=== PATIENT | male | born 1970 | race Caucasian/White ===

== ENCOUNTER 2021-10-10 22:15 | Emergency (ER) | payer BC, OTHER ==
--- OUTSIDE RECORDS SUMMARY | 2021-10-10 22:18 | XMS REPORT | Continuity of Care Document ---
:1970 Author Organization [facility] t Address [address] [place] [address] Care Team Providers Name Role Phone MENDOZA LOZOYA Primary Care Physician Unavailable Dimitri Attending Clinician Unavailable EDIONGILSON Attending Clinician Unavailable EDARYA Admitting Clinician Unavailable Payers Payer Name Policy Type Policy Number Effective Date Expiration Date Cherie ROBLES O [id number] 2017 00:00:00 2021 00:00 :00 Problems This patient has no known problems. Allergies, Adverse Reactions, Alerts Allergy Allergy Status Severity Reaction(s) Onset Inactive Treating Comm ents Source Name Type Date Date Clinician NO KNOWN Drug Active [facility] Medications Ordered Filled Start Stop Current Ordering Indication Dosage Frequency Signature Comments Components Source Medication Medication Date Date Medication? Clinician (SIG) Name Name Lisinopril Lisinopril Yes Vani [address] [facility] [facility] Tylenol Tylenol Yes Vani not [facility] Arthritis Arthritis [place] [facility] Metformin Metformin Yes Vani [address] [facility] HCl HCl [place] [facility] Atorvastati Atorvastati Yes Vani [address] [facility] n Calcium n Calcium [place] [facility] Immunizations Ordered Filled Immunization Date Status Comments Sourc e Immunization Name Name Flucsarax - single Flucxochitlvax - single 2019-07-[address] [facility] - dose syringe dose syringe 00:00:00 [facility] Procedures This patient has no known procedures. Encounters Start End Encounter Admission Attending Care Care Encounter Source Date/Time Date/Time Type Type Clinicians Facility Department ID 2021-08-22 Out[facility] [id number] [facility] 2021-08-22 Outpatient Dimit[facility]I [facility] [id number] [facility] 12[facility]45[facility]46 [id number] 2021-08-22 [facility] [id number] [facility] 11[facility]24[facility] [id number] [facility] 2021-08-10 2021-08-10 [facility] [id number] [facility] 2021-06-10 2021-06-10 [facility] [id number] [facility] 2021-05-17 2021-05-17 [facility] [id number] [facility] 2020-10-23 2020-10-23 [facility] [id number] [facility] 2020-10-12 2020-10-12 [facility] [id number] [facility] 2020-07-24 2020-07-24 [facility] [id number] [facility] 2020-03-31 2020-03-31 [facility] [id number] [facility] 09:00[facility]00 09:00:00 [facility] 2019-12-30 2019-12-30 [facility] [id number] [facility] 10[facility]20:00 10:20:00 [facility] 2019-10-01 2019-10-01 [facility] [id number] 09:40:00 09:40:00 [facility] 2019-07-12 2019-07-13 Outpatient Pan BAUER [facility] [id number] [facility] 17[facility]19:26 18:02:00 [facility] 2019-07-08 2019-07-08 [facility] [id number] [address] 17:57:00 17:57:00 [facility] 2019-07-08 2019-07-08 [facility] [id number] 15:00:00 15:00:00 [facility] 2019-07-02 2019-07-02 [facility] [id number] 08:00:00 08:00:00 [facility] 2019-03-26 2019-03-26 [facility] [id number] 08:20:00 08:20:00 [facility] 2019-02-10 2019-02-10 [facility] [id number] 15:20:00 15:20:00 [facility] Results This patient has no known results.
[2021-10-10 23:27] LABS: Absolute Lymphocytes (CBC) 3.5 K/uL (0.7-4.9); MPV 8.3 fL (7.6-11.3)
[2021-10-10 23:48] LABS: Albumin 3.8 g/dL (3.4-5.0); Bilirubin Direct 0.1 mg/dL (0-0.2); Bilirubin Total 0.4 mg/dL (0.2-1.0); Potassium 3.9 mmol/L (3.5-5.1); Protein, Total 7.5 g/dL (6.4-8.2); Troponin High Sensitivity 16.4 pg/mL (<58.9)
[2021-10-11] MEDS ORDERED: METOPROLOL TARTRATE 5 MG/5 ML INJ IV ONE (00:21)
--- NOTE | 2021-10-11 08:03 | ER ---
Nurse's Notes [facility] Name: Brandon Nelson Age: 51 yrs Sex: Male : 1970 Arrival Date: 10/10/2021 Time: 22:19 Bed 15 Private MD: Diagnosis: sinus tachycardia;Palpitations Presentation: 10/10 22:26 Chief complaint: Patient states: I was at work and at around 9 pm my Heart rate jump to ke1 210 on apple watch, started feeling clammy , hot with headache. Last time had these symptoms was in 2019. Coronavirus screen: Vaccine status: Patient reports receiving the 2nd dose of the covid vaccine. Ebola Screen: No symptoms or risks identified at this time. Initial Sepsis Screen: Does the patient meet any 2 criteria? No. Patient's initial sepsis screen is negative. Does the patient have a suspected source of infection? No. Patient's initial sepsis screen is negative. Risk Assessment: Do you want to hurt yourself or someone else? Patient reports no desire to harm self or others. Onset of symptoms was October 10, 2021 at 21:00. 22:26 Method Of Arrival: Ambulatory counts include 234 beds at the [facility] 22:26 Acuity: BIN 2 as6 Triage Assessment: 22:34 General: Appears in no apparent distress. Behavior is anxious. Pain: Denies pain. Pain: counts include 234 beds at the [facility] Pain currently is 2 out of 10 on a pain scale. Cardiovascular: Reports headache. Historical: - Allergies: 22:31 No Known Allergies; ke1 - PMHx: 22:31 Diabetes mellitus; Hypertensive disorder; high cholesterol; ke1 - PSHx: 22:31 double hernia when baby; neck surgery; ke1 - Immunization history:: Flu vaccine is not up to date. It has been more than one year since last vaccine. - Social history:: Smoking status: Patient reports the use of cigarette tobacco products, smokes one-half pack cigarettes per day. Screenin/17 00:10 Abuse screen: Denies threats or abuse. Nutritional screening: No deficits noted. ke1 Tuberculosis screening: No symptoms or risk factors identified. Fall Risk No fall in past 12 months (0 pts). No secondary diagnosis (0 pts). No IV (0 pts). Ambulatory Aid- None/Bed Rest/Nurse Assist (0 pts). Gait- Normal/Bed Rest/Wheelchair (0 pts) Mental Status- Oriented to own ability (0 pts). Total Herrera Fall Scale indicates No Risk (0-24 pts). Assessment: 10/10 23:00 Pain: Pain began 4 hours ago. jg9 23:00 Pain: Pain does not radiate. jg9 23:23 Reassessment: Patient states feeling better. as6 10/11 01:09 Pain: Denies pain. ke1 02:00 Reassessment: Patient is alert, oriented x 3, equal unlabored respirations, skin ke1 warm/dry/pink. Patient states symptoms have improved. 03:21 Reassessment: Patient denies pain at this time. Patient states feeling better. Patient ke1 states symptoms have improved. 04:31 Reassessment: Patient is alert, oriented x 3, equal unlabored respirations, skin as6 warm/dry/pink. Patient states symptoms have improved. Vital Signs: 10/10 22:26 BP 130 / 96; Pulse 123; Resp 18; Temp 98.4; Weight 120.2 kg; Height 6 ft. 2 in. (187.96 ke1 cm); Pain 0/10; 23:23 BP 111 / 88; Pulse 114; Resp 20 S; Pulse Ox 100% on R/A; as6 10/11 00:23 BP 118 / 93; Pulse 103; Resp 18; ke1 01:46 BP 125 / 75; Pulse 84; Resp 18; Pulse Ox 95% on R/A; ke1 03:22 BP 132 / 90; Pulse 88; Resp 17; Pulse Ox 94% on R/A; ke1 05:22 BP 133 / 91; Pulse 81; Resp 16; Pulse Ox 94% on R/A; ke1 06:24 BP 134 / 94; Pulse 74; Resp 15; Pulse Ox 94% ; ke1 07:00 BP 135 / 85; Pulse 76; Resp 16 S; Pulse Ox 98% on R/A; jg9 08:00 BP 126 / 87; Pulse 76; Resp 16; Pulse Ox 94% on R/A; jg9 10/10 22:26 Body Mass Index 34.02 (120.20 kg, 187.96 cm) ke1 ED Course: 10/10 22:19 Patient arrived in ED. wm 22:25 Darek Dickerson MD is Attending Physician. kdr 22:31 Triage completed. ke1 22:50 Arm band placed on. EKG completed in triage. Results shown to MD. ke1 23:23 Inserted saline lock: 20 gauge in left antecubital area, using aseptic technique. Blood as6 collected. 23:23 Basic Metabolic Panel Sent. as6 23:23 CBC with Diff Sent. as6 23:23 LFT's Sent. as6 23:24 Troponin HS Sent. as6 23:28 XRAY Chest (1 view) In Process Unspecified. EDKS 10/11 00:04 Juan Manuel Noble, BRANDON is Primary Nurse. ke1 00:10 Bed in low position. Call light in reach. ke1 01:08 Patient maintains SpO2 saturation greater than 95% on room air. ke1 01:09 plaster and stucco worker on. Pulse ox on. ke1 03:01 Juan Manuel Noble, BRANDON is Primary Nurse. ke1 07:22 Attending Physician role handed off by Darek Dickerson MD ms3 07:22 Ramón Justin DO is Attending Physician. ms3 07:28 No apparent distress. Resting quietly. jg9 07:28 Awaiting lab results. jg9 07:55 Troponin High Sensitivity Sent. jg9 08:02 Dhiraj Matute MD is Referral Physician. ms3 08:13 No provider procedures requiring assistance completed. jg9 08:13 IV discontinued. jg9 Administered Medications: 00:22 Drug: Lopressor (metoprolol) 2.5 mg Route: IVP; Site: left antecubital; ke1 00:57 Follow up: Response: Marked relief of symptoms; Marked relief of symptoms HR 89 ke1 Outcome: 08:03 Discharge ordered by . ms3 08:13 Discharged to home ambulatory. jg9 08:13 Condition: stable 08:13 Discharge instructions given to patient, Instructed on discharge instructions, follow up and referral plans. Demonstrated understanding of instructions, follow-up care. 08:15 Patient left the ED. jg9 Signatures: Dispatcher [employer] [facility] Darek Dickerson MD MD [facility] Ramón Justin DO DO ms3 Sammi Gordon Ashby, RN RN as6 Marga Veloz RN RN jg9 Juan Manuel Noble RN RN ke1 Corrections: (The following items were deleted from the chart) 10/10 22:35 22:26 Acuity: BIN 3 ke1 as6 10/11 01:10 01:09 Pain: ke1 ke1 01:10 01:09 Pain: Denies pain. ke1 ke1 08:14 08:14 Pain: Pain began 4 hours ago. jg9 jg9 08:16 07:30 BP 126 / 87; Pulse 76bpm; Resp 16bpm; Pulse Ox 94% RA; jg9 jg9
--- NOTE | 2021-10-11 08:03 | EDPHYS ---
Physician Documentation [facility] Name: Brandon Nelson Age: 51 yrs Sex: Male : 1970 Arrival Date: 10/10/2021 Time: 22:19 Bed 15 Private MD: ED Physician Ramón Justin HPI: 10/11 01:17 This 51 yrs old Male presents to ER via Ambulatory with complaints of Irregular Pulse. kdr 01:17 The patient presents with a history of heart racing. Context: The symptoms occur with kdr light activity. Onset: The symptoms/episode began/occurred suddenly, just prior to arrival. Duration: The patient or guardian reports multiple episodes, that are intermittent, that wax and wane, with no pattern. Modifying factors: The symptoms are aggravated by nothing. The symptoms are alleviated by nothing. Associated signs and symptoms: Pertinent positives: lightheadedness, Patient felt hot and diaphoretic. Severity of symptoms: At their worst the symptoms were moderate severe in the emergency department the symptoms have improved markedly. The patient has experienced similar episodes in the past, several times, Patient had one episode in 2017 and again in 2019. 2017 the patient was cardioverted.. The patient has not recently seen a physician. Historical: - Allergies: 10/10 22:31 No Known Allergies; ke1 - PMHx: 22:31 Diabetes mellitus; Hypertensive disorder; high cholesterol; ke1 - PSHx: 22:31 double hernia when baby; neck surgery; ke1 - Immunization history:: Flu vaccine is not up to date. It has been more than one year since last vaccine. - Social history:: Smoking status: Patient reports the use of cigarette tobacco products, smokes one-half pack cigarettes per day. ROS: 10/11 01:17 Constitutional: Negative for fever, chills, and weight loss, Eyes: Negative for injury, kdr pain, redness, and discharge, ENT: Negative for injury, pain, and discharge, Neck: Negative for injury, pain, and swelling, Respiratory: Negative for shortness of breath, cough, wheezing, and pleuritic chest pain, Abdomen/GI: Negative for abdominal pain, nausea, vomiting, diarrhea, and constipation, Back: Negative for injury and pain, : Negative for injury, bleeding, discharge, and swelling, MS/Extremity: Negative for injury and deformity, Skin: Negative for injury, rash, and discoloration, Neuro: Negative for headache, weakness, numbness, tingling, and seizure activity. Psych: Negative for depression, anxiety, suicide ideation, homicidal ideation, and hallucinations, Allergy/Immunology: Negative for hives, rash, and allergies, Endocrine: Negative for neck swelling, polydipsia, polyuria, polyphagia, and marked weight changes, Hematologic/Lymphatic: Negative for swollen nodes, abnormal bleeding, and unusual bruising. Cardiovascular: Positive for chest pain, palpitations. Exam: 01:17 Constitutional: This is a well developed, well nourished patient who is awake, alert, kdr and in no acute distress. Head/Face: Normocephalic, atraumatic. Eyes: Pupils equal round and reactive to light, extra-ocular motions intact. Lids and lashes normal. Conjunctiva and sclera are non-icteric and not injected. Cornea within normal limits. Periorbital areas with no swelling, redness, or edema. Neck: Trachea midline, no thyromegaly or masses palpated, and no cervical lymphadenopathy. Supple, full range of motion without nuchal rigidity, or vertebral point tenderness. No Meningismus. Chest/axilla: Normal chest wall appearance and motion. Nontender with no deformity. No lesions are appreciated. Respiratory: Lungs have equal breath sounds bilaterally, clear to auscultation and percussion. No rales, rhonchi or wheezes noted. No increased work of breathing, no retractions or nasal flaring. Abdomen/GI: Soft, non-tender, with normal bowel sounds. No distension or tympany. No guarding or rebound. No evidence of tenderness throughout. Back: No spinal tenderness. No costovertebral tenderness. Full range of motion. Skin: Warm, dry with normal turgor. Normal color with no rashes, no lesions, and no evidence of cellulitis. MS/ Extremity: Pulses equal, no cyanosis. Neurovascular intact. Full, normal range of motion. Neuro: Awake and alert, GCS 15, oriented to person, place, time, and situation. Cranial nerves II-XII grossly intact. Motor strength 5/5 in all extremities. Sensory grossly intact. Cerebellar exam normal. Normal gait. Psych: Awake, alert, with orientation to person, place and time. Behavior, mood, and affect are within normal limits. 01:17 Cardiovascular: Rate: tachycardic, actual rate is 114 bpm, Rhythm: regular, Pulses: no pulse deficits are appreciated, Heart sounds: normal, Edema: is not appreciated. 01:17 ECG was reviewed by the Attending Physician. Vital Signs: 10/10 22:26 BP 130 / 96; Pulse 123; Resp 18; Temp 98.4; Weight 120.2 kg; Height 6 ft. 2 in. (187.96 ke1 cm); Pain 0/10; 23:23 BP 111 / 88; Pulse 114; Resp 20 S; Pulse Ox 100% on R/A; as6 10/11 00:23 BP 118 / 93; Pulse 103; Resp 18; ke1 01:46 BP 125 / 75; Pulse 84; Resp 18; Pulse Ox 95% on R/A; ke1 03:22 BP 132 / 90; Pulse 88; Resp 17; Pulse Ox 94% on R/A; ke1 05:22 BP 133 / 91; Pulse 81; Resp 16; Pulse Ox 94% on R/A; ke1 06:24 BP 134 / 94; Pulse 74; Resp 15; Pulse Ox 94% ; ke1 07:00 BP 135 / 85; Pulse 76; Resp 16 S; Pulse Ox 98% on R/A; jg9 08:00 BP 126 / 87; Pulse 76; Resp 16; Pulse Ox 94% on R/A; jg9 10/10 22:26 Body Mass Index 34.02 (120.20 kg, 187.96 cm) ke1 MDM: 07:23 Transition of care: Care assumed from [facility]. ms3 07:23 Patient medically screened. ms3 08:00 Differential diagnosis: arrythmia, dehydration, A fib with RVR. Data reviewed: vital ms3 signs, nurses notes, lab test result(s), EKG, radiologic studies, plain films. Data interpreted: health coordinator: rate is 78 beats/min, rhythm is normal sinus rhythm, Pulse oximetry: on room air is 96 %. Interpretation: normal. Test interpretation: by ED physician or midlevel provider: ECG. Counseling: I had a detailed discussion with the patient and/or guardian regarding: the historical points, exam findings, and any diagnostic results supporting the discharge/admit diagnosis, lab results, radiology results, the need for outpatient follow up, to return to the emergency department if symptoms worsen or persist or if there are any questions or concerns that arise at home. ED course: Discussed elevated white blood count with patient. Patient denies fevers, chills, dysuria, cough. Patient states he feels fine at this time. Patient agrees with discharge with close return precautions given to include fever, chills, irregular heart rate, shortness of breath, worsening symptoms or any concerns. Patient understands and agrees with plan. Patient follow-up with his primary care physician in 1 to 2 days. Patient stands and agrees with plan. All questions were answered. On reevaluation patient's heart rate and rhythm are regular, symptoms have improved, patient is alert and oriented x4, no apparent distress, ambulatory emergency department, speaking full sentences.. 10/10 23:03 Order name: Basic Metabolic Panel; Complete Time: 00:04 10/10 23:03 Order name: CBC with Diff; Complete Time: 00:04 10/10 23:03 Order name: LFT's; Complete Time: 00:04 10/10 23:03 Order name: Troponin HS; Complete Time: 00:04 10/11 00:05 Order name: Procalcitonin [facility] 10/11 00:05 Order name: Lactate; Complete Time: 07:50 [facility] 10/10 23:03 Order name: XRAY Chest (1 view) 10/10 23:03 Order name: EKG; Complete Time: 23:04 bb 10/10 23:03 Order name: Cardiac monitoring; Complete Time: 00:58 10/10 23:03 Order name: EKG - Nurse/Tech; Complete Time: 23:06 10/10 23:03 Order name: IV Saline Lock; Complete Time: 23:23 10/11 01:33 Order name: Troponin High Sensitivity kdr 10/11 01:33 Order name: Troponin High Sensitivity; Complete Time: 07:50 EDMS 10/10 23:03 Order name: Labs collected and sent; Complete Time: 23:23 10/10 23:03 Order name: O2 Per Protocol; Complete Time: 00:58 10/10 23:03 Order name: O2 Sat Monitoring; Complete Time: 00:58 bb EC:17 Rate is 124 beats/min. Rhythm is regular, Sinus tachycardia with No ectopy. QRS [place] is kdr Normal. [place] interval is normal. QRS interval is normal. QT interval is normal. Clinical impression: Sinus tachycardia. Administered Medications: 00:22 Drug: Lopressor (metoprolol) 2.5 mg Route: IVP; Site: left antecubital; ke1 00:57 Follow up: Response: Marked relief of symptoms; Marked relief of symptoms HR 89 ke1 Disposition Summary: 10/11/21 08:03 Discharge Ordered Location: Home ms3 Problem: new ms3 Symptoms: are resolved ms3 Condition: Stable ms3 Diagnosis - sinus tachycardia ms3 - Palpitations ms3 Followup: ms3 - With: Dhiraj Matute MD - When: 1 - 2 days - Reason: Recheck today's complaints Discharge Instructions: - Discharge Summary Sheet ms3 - Palpitations ms3 Forms: - Medication Reconciliation Form ms3 - Thank You Letter ms3 - Antibiotic Education ms3 - Prescription Opioid Use ms3 Signatures: Dispatcher [employer] EDMS Darek Dickerson MD MD kdr Ballard, Brenda, RN RN bb Sims, Marcus, DO DO ms3 Juan Manuel Noble RN RN ke1
[2021-10-11 09:32] VITALS: TEMP 98.4
[2021-10-11 09:43] VITALS: BP 126/87; O2SAT 94
--- NOTE | 2021-10-11 10:28 | RAD REPORT ---
EXAM DESCRIPTION: RAD - Chest Single View - 10/10/2021 11:28 pm CLINICAL HISTORY: 51 years, Male, irregular pulse COMPARISON: None. FINDINGS: Single view of the chest was obtained portable. No prior films are available for compariso n. The cardiomediastinal silhouette demonstrate to be unremarkable. The heart is not enlarged. Th e thoracic aorta is unremarkable. Costophrenic angles are sharp. No areas of consolidation or aashish s are seen. The rest of the soft tissue and bony structures demonstrate to be unremarkable. IMPRESSION: NO ACUTE CARDIOPULMONARY DISEASE SEEN. Electronically signed by: Jose Rojas MD 10/10/2021 11:46 PM CDT Due to temporary technical issues with the PACS/Fluency reporting system, reports are being signed by the in house radiologists without review as a courtesy to insure prompt reporting. The interpreting radiologist is fully responsible for the content of the report.
--- NOTE | 2021-10-15 08:32 | EKG ---
Test Date: 2021-10-10 Test Time: 22:45:41 Joinery Machinist: JOSE MANUEL MEASUREMENT RESULTS: Intervals: Rate: 124 HI: 140 QRSD: 104 QT: 338 QTc: 485 [place]: P: 59 HI: 140 QRS: -26 T: 50 INTERPRETIVE STATEMENTS: Sinus tachycardia Possible Left atrial enlargement Incomplete right bundle branch block Borderline ECG Compared to ECG 12/05/2016 17:23:34 Incomplete right bundle-branch block now present Sinus rhythm no longer present Electronically Signed On 10-15-21 08:24:04 CDT by Chauncey Venegas
== END 2021-10-11 08:15 | disposition home or self-care (01) ==
LOC: ER 22:15
DX: R00.0 Tachycardia, unspecified (principal); R00.2 Palpitations; I10 Essential (primary) hypertension; E78.00 Pure hypercholesterolemia, unspecified; F17.210 Nicotine dependence, cigarettes, uncomplicated
CPT/HCPCS: 36415; 71045; 80048; 80076; 83605; 84145; 84484; 85025; 93005; 96374; 99285

== ENCOUNTER 2022-01-07 11:00 | Day surgery (SDC) | payer BC ==
[2022-01-03 13:23] LABS: Absolute Lymphocytes (CBC) 4.4 K/uL (0.7-4.9); Hematocrit 43.8 % (39.6-49.0); Lymphocytes % 30.3 % (15.3-44.8); MPV 8.4 fL (7.6-11.3); RBC Red Blood Cell Count 4.74 M/uL (4.33-5.43)
[2022-01-03 13:27] LABS: Protime INR 0.97
[2022-01-03 13:33] LABS: Potassium 3.8 mmol/L (3.5-5.1)
--- NOTE | 2022-01-04 10:59 | EKG ---
Test Date: 2022-01-03 Test Time: 12:54:28 Professor Of Geography: SUSAN MEASUREMENT RESULTS: Intervals: Rate: 82 OR: 144 QRSD: 112 QT: 376 QTc: 439 [place]: P: 58 OR: 144 QRS: 4 T: 23 INTERPRETIVE STATEMENTS: Normal sinus rhythm Normal ECG Compared to ECG 10/10/2021 22:45:41 Sinus tachycardia no longer present Incomplete right bundle-branch block no longer present Electronically Signed On 01-04-22 10:58:32 CDT by Chauncey Venegas
[~2022-01-07 11:00] MED LIST: NA CHLORIDE 0.9% 500 ML ONE
[2022-01-07] MEDS ORDERED: MIDAZOLAM HCL 2 MG/2 ML INJ ONE (12:13)
[2022-01-07] MEDS ORDERED: HEPA 1000U/500MLS 2,000 UNIT/1,000 ML BAG IV ONE (12:13)
[2022-01-07] MEDS ORDERED: LIDOCAINE 1% 20 ML MDV ONE (12:13)
[2022-01-07] MEDS ORDERED: FENTANYL CITR 100 MCG/2 ML ONE (12:13)
[2022-01-07] MEDS ORDERED: NITROGLYCERIN 100 MCG/ML SYR (for cath lab use only) IV ONE (12:14)
[2022-01-07] MEDS ORDERED: HEPARIN 10,000 UNIT/10 ML VIAL IV ONE (12:14)
[2022-01-07] MEDS ORDERED: ATROPINE SULF 1 MG/10 ML SYR IV ONE (12:14)
[2022-01-07] MEDS ORDERED: VERAPAMIL HCL 10 MG/4 ML VIAL IV ONE (12:14)
[2022-01-07] MEDS ORDERED: HEPARIN 5000 UNIT/ML 1 ML VIAL ONE (12:14)
[2022-01-07 13:47] VITALS: O2SAT 99
[2022-01-07 14:38] VITALS: BP 118/66
--- NOTE | 2022-01-07 15:38 | OP ---
Date of Procedure: 01/07/2022 Surgeon: HERLINDA PULIDO Procedures Performed: 1.Selective coronary angiogram. 2.Left heart catheterization. Indication: 1.Abnormal stress test. 2.Brief V-tach on Holter. Access: Right radial artery 6-Cambodian closed with TR band. Complications: None. Bleeding: Less than 10 mL. Anesthesia: Total sedation time was 25 minutes, used fentanyl and Versed. Description Of Procedure: After risks, benefits, and alternatives were explained, the patient agreed to procedure and signed informed consent. The patient was brought into the cardiac catheterization laboratory, prepped and draped in the usual sterile fashion. Then, I accessed right radial artery us ing pediatric micropuncture kit. We gave fentanyl and Versed incremental doses to achieve adequate m oderate sedation. I took a 5-Cambodian 4.0 [place] catheter into the aortic root, engaged the left main a nd right coronary artery, and then catheter was pushed over the wire into the LV, took the LVEDP and pullback. It did not record any significant gradient. I then removed the catheter and the sheath, a nd then placed TR band with good hemostasis. Findings: 1.Left main; large and normal. 2.LAD; large vessel, wrapping around the apex and is normal with normal diagonal branches. 3.Left circumflex; codominant circulation, large vessel and normal. 4.RCA; codominant circulation and is normal. 5.LVEDP in the range of 10-15 mmHg. Conclusion: 1.Normal coronary arteries. 2.Borderline LVEDP. Plan: Medical management and risk factor modification. SR/MODL Voice ID: [id number] Report ID: [id number]
== END 2022-01-07 14:30 | disposition home or self-care (01) ==
LOC: CCL 11:00
PROVIDERS: ATTEND Internal Medicine
DX: R94.39 Abnormal result of other cardiovascular function study (principal); I47.1 Supraventricular tachycardia; R06.02 Shortness of breath; I10 Essential (primary) hypertension; E78.5 Hyperlipidemia, unspecified; E11.9 Type 2 diabetes mellitus without complications; F17.210 Nicotine dependence, cigarettes, uncomplicated; Z20.822 Contact with and (suspected) exposure to COVID-19; Z79.84 Long term (current) use of oral hypoglycemic drugs; Z79.899 Other long term (current) drug therapy; Z82.49 Family history of ischemic heart disease and other diseases of the circulatory system
CPT/HCPCS: 93005; 85025; 80048; 36415; 85610; 82947; 85730; 93458; U0003; C1893; Q9966; J1644 ×2; J2250; J3010; J7040

== ENCOUNTER 2022-03-22 11:32 | Day surgery (SDC) | payer BC ==
[2022-03-22 08:47] LABS: Potassium 4.2 mmol/L (3.5-5.1)
[2022-03-22 09:01] LABS: SARS-CoV-2 Antigen Rapid Res Negative (Negative)
[2022-03-22] MEDS ORDERED: NA CHLORIDE 0.9% 1,000 ML ONE (12:01)
[2022-03-22] MEDS ORDERED: FENTANYL CITR 100 MCG/2 ML ONE (12:28)
[2022-03-22] MEDS ORDERED: propofoL 200 MG/20 ML VIAL IV ONE (12:28)
[2022-03-22] MEDS ORDERED: ONDANSETRON 4 MG/2 ML VIAL ONE (12:28)
[2022-03-22] MEDS ORDERED: MIDAZOLAM HCL 2 MG/2 ML INJ ONE (12:28)
[2022-03-22] MEDS ORDERED: LIDOCAINE 2% MPF 5 ML VIAL ONE (12:28)
[2022-03-22] MEDS ORDERED: BUPIVACAINE 0.25% PF 30 ML VIAL ONE (12:37)
[2022-03-22] MEDS ORDERED: SODIUM HYPOCHLORITE 0.25% 473 ML ONE (12:51)
[2022-03-22] MEDS: CEFAZOLIN 2 GM IN 0.9% NACL 2 GM/100 ML BAG ONE ×2 (12:56→13:25)
[2022-03-22] MEDS ORDERED: GLYCOPYRROLATE 0.2 MG/ML SYR ONE (13:56)
--- NOTE | 2022-03-22 14:02 | P.OP ---
Preoperative diagnosis: Posterior Neck Recurrent lipoma Postoperative diagnosis: Posterior Neck Recurrent lipoma Primary procedure: Wide excision of Posterior Neck Recurrent lipoma Anesthesia: GETA + Local Estimated blood loss: <5cc Specimen: 8cm lipoma up to muscle Findings: 8cm lipoma through fascia into muscle Complications: None Drain(s): THALIA drain (7mm round) Transferred to: Recovery Room Condition: Good
[2022-03-22] MEDS ORDERED: KETOROLAC 30 MG/ML INJ ONE (14:04)
[2022-03-22] MEDS ORDERED: EPHEDRINE SULF 50 MG/ML VIAL ONE (14:05)
[2022-03-22] MEDS ORDERED: HYDROCODONE/APAP 10/325 TAB ONE (15:57)
[2022-03-22] MEDS ORDERED: TRAMADOL HCL 50 MG TAB ONE (16:05)
[2022-03-22 16:19] VITALS: BP 142/96; TEMP 97; O2SAT 98
--- NOTE | 2022-03-23 01:59 | OP ---
Date of Procedure: 03/22/2022 Surgeon: Israel Valerio MD, Preoperative Diagnosis: Posterior neck recurrent lipoma. Postoperative Diagnosis: Posterior neck recurrent lipoma. Procedure Performed: Wide local excision of posterior neck recurrent lipoma. Anesthesia: General endotracheal plus local with 0.25% Marcaine. Estimated Blood Loss: Less than 5 cc. Specimen: Approximately 8 cm lipomatous mass up to and into the muscle. Findings: 8 cm lipomatous mass, recurrent posterior neck up through fascia into muscle, multi locula israel. Complications: None. Drains: A 7 mm round THALIA drain. Disposition: The patient transferred to the recovery room in good condition. Procedure In Detail: After informed was obtained, the patient was brought to the operating room, pre pped and draped in the usual sterile fashion. After adequate anesthesia was achieved, I made a linea r incision through the previous incision. The patient had on the posterior neck transversely down th rough subcutaneous tissues with a 15 blade. Electrocautery was used to dissect down through the subc utaneous tissues to expose a lipomatous mass. This was circumferentially dissected predominantly kayla ntly, but with some component of electrocautery it was noted to extend down up to the muscle. This w as using electrocautery predominantly. This was then removed, sent off for pathologic exam ination. The area was copiously irrigated. Hemostasis was achieved with electrocautery. The area w as copiously irrigated 1 last time. A separate stab incision was made on the right inferior aspect w ith a 15 blade and a tonsil clamp was used to pass a 7 mm THALIA drain through this cavity and it was the n secured to the skin using a 3-0 nylon suture and placed in the dependent portion of the cavity. At this point, I closed the skin plane using interrupted 3-0 Vicryl suture. The skin was closed with 4 -0 Monocryl in running fashion. Dermabond was placed over the top. The patient tolerated the proced ure well without evidence of complication and transferred to PACU in good condition. All counts were correct at the end of the case. BETH/SEAMUSL Voice ID: [id number] Report ID: [id number]
== END 2022-03-22 16:30 | disposition home or self-care (01) ==
LOC: PRE 11:32 → OR 16:30
PROVIDERS: ATTEND Surgery
PROC: 0JB50ZZ Excision of Left Neck Subcutaneous Tissue and Fascia, Open Approach (ICD-10-PCS; principal; 2022-03-22 13:30)
DX: D17.0 Benign lipomatous neoplasm of skin and subcutaneous tissue of head, face and neck (principal); Z20.822 Contact with and (suspected) exposure to COVID-19; E11.9 Type 2 diabetes mellitus without complications; I10 Essential (primary) hypertension; E78.00 Pure hypercholesterolemia, unspecified
CPT/HCPCS: 11426; 80048; 36415; 82947 ×2; 88304; 87811; J2704; J2250; J3010; J0690; J7030; J2405